=== PATIENT | male | born 1990 | race Caucasian/White ===

== ENCOUNTER 2022-12-28 10:54 | Outpatient (CLI) | payer OTHER | END 2022-12-28 10:55 | disposition home or self-care (01) | LOC: RAD 10:54 | PROVIDERS: ATTEND Physician Assistant Medical | DX: R13.10 Dysphagia, unspecified (principal); R10.11 Right upper quadrant pain; K22.9 Disease of esophagus, unspecified | CPT/HCPCS: 74220 ==

== ENCOUNTER 2022-12-29 13:02 | Outpatient (CLI) | payer OTHER | END 2022-12-29 13:03 | disposition home or self-care (01) | LOC: NM 13:02 | PROVIDERS: ATTEND Physician Assistant Medical | DX: R10.11 Right upper quadrant pain (principal); R13.10 Dysphagia, unspecified | CPT/HCPCS: 78227; A9537 ==